=== PATIENT | female | born 1955 | race Caucasian/White ===

== ENCOUNTER 2019-08-23 11:34 | Emergency (ER) | payer OTHER ==
[~2019-08-23] VITALS: Ht 165.1 cm; Wt 51.7 kg
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
--- NOTE | 2019-08-23 12:36 | NUR ---
ALL RESULTS BACK AT THIS TIME, CHART UP FOR RECHECK.
--- NOTE | 2019-08-23 13:07 | NUR ---
Patient/Caregiver given discharge instructions and they have confirmed that they understand the instructions. Patient ambulatory with steady gait.
== END 2019-08-23 13:22 | disposition home or self-care (01) ==
LOC: ED 13:16
DX: S93.621A Sprain of tarsometatarsal ligament of right foot, initial encounter (principal); W01.0XXA Fall on same level from slipping, tripping and stumbling without subsequent striking against object, initial encounter; Y93.89 Activity, other specified; Y92.410 Unspecified street and highway as the place of occurrence of the external cause; Y99.8 Other external cause status
CPT/HCPCS: 99283